=== PATIENT | female | born 1945 | race Two or more races ===

== ENCOUNTER 2017-11-09 10:15 | Emergency (ER) | payer OTHER ==
[~2017-11-09] VITALS: Ht 160 cm; Wt 63.5 kg
[2017-11-09] MEDS ORDERED: ASA81 MG PO (11:42)
[2017-11-09] MEDS ORDERED: INTESTINEX680 M1 PO (16:49)
[2017-11-09] MEDS ORDERED: LEVSIN/SL0.125 MG PO (16:49)
[2017-11-09] MEDS ORDERED: ULTRACET PO (16:52)
== END 2017-11-09 17:51 | disposition home or self-care (01) ==
LOC: ER 10:15
DX: B34.9 Viral infection, unspecified (principal); R10.32 Left lower quadrant pain

== ENCOUNTER 2018-01-06 08:11 | Emergency (ER) | payer OTHER ==
[~2018-01-06] VITALS: Ht 157.5 cm; Wt 63.5 kg
[~2018-01-06 08:11] MED LIST: ASA81 MG PO; INTESTINEX680 M1 PO; LEVSIN/SL0.125 MG PO; ULTRACET PO
== END 2018-01-06 21:59 | disposition home or self-care (01) ==
LOC: ER 08:11
DX: R42 Dizziness and giddiness (principal); R51 Headache

== ENCOUNTER 2019-01-07 10:18 | Emergency (ER) | payer OTHER ==
[~2019-01-07] VITALS: Ht 154.9 cm; Wt 59.0 kg
== END 2019-01-07 13:53 | disposition home or self-care (01) ==
LOC: ER 10:18
DX: B33.8 Other specified viral diseases (principal); B96.0 Mycoplasma pneumoniae [M. pneumoniae] as the cause of diseases classified elsewhere

== ENCOUNTER 2020-04-23 07:22 | Emergency (ER) | payer OTHER ==
[~2020-04-23] VITALS: Ht 160 cm; Wt 54.9 kg
[2020-04-23] MEDS ORDERED: NORFLEX100MG PO (10:40)
[2020-04-23] MEDS ORDERED: MEDROLPACK PO (10:40)
== END 2020-04-23 12:33 | disposition home or self-care (01) ==
LOC: ER 07:22
DX: M54.5 Low back pain (principal); M25.552 Pain in left hip

== ENCOUNTER 2020-06-11 13:14 | Emergency (ER) | payer OTHER ==
[~2020-06-11] VITALS: Ht 160 cm; Wt 56.7 kg
[~2020-06-11 13:14] MED LIST changes: +MEDROLPACK PO; +NORFLEX100MG PO
== END 2020-06-11 16:56 | disposition home or self-care (01) ==
LOC: ER 13:14
DX: M54.2 Cervicalgia (principal)

== ENCOUNTER 2020-11-14 15:17 | Emergency (ER) | payer OTHER ==
[~2020-11-14] VITALS: Ht 162.6 cm; Wt 59.0 kg
== END 2020-11-14 18:25 | disposition home or self-care (01) ==
LOC: ER 15:17
DX: S00.03XA Contusion of scalp, initial encounter (principal); S10.83XA Contusion of other specified part of neck, initial encounter; W01.190A Fall on same level from slipping, tripping and stumbling with subsequent striking against furniture, initial encounter; Y93.89 Activity, other specified; Y92.89 Other specified places as the place of occurrence of the external cause; Y99.8 Other external cause status

== ENCOUNTER 2020-11-22 12:01 | Emergency (ER) | payer OTHER ==
[~2020-11-22] VITALS: Ht 160 cm; Wt 59.0 kg
[2020-11-22] MEDS ORDERED: MULTIPLE VITAM1 EACH PO (12:17)
[2020-11-22] MEDS ORDERED: SKELAGESIC PO (15:52)
[2020-11-22] MEDS ORDERED: ORPHENADRINE C100 MG PO (15:52)
[2020-11-22] MEDS ORDERED: ULTRAM50 MG PO (15:52)
== END 2020-11-22 19:18 ==
LOC: ER 12:01
DX: R51.9 Headache, unspecified (principal); S80.02XS Contusion of left knee, sequela; S70.02XS Contusion of left hip, sequela; S00.83XS Contusion of other part of head, sequela; W18.09XS Striking against other object with subsequent fall, sequela

== ENCOUNTER 2021-04-25 11:13 | Emergency (ER) | payer OTHER ==
[~2021-04-25] VITALS: Ht 139.7 cm; Wt 56.7 kg
[~2021-04-25 11:13] MED LIST changes: +MULTIPLE VITAM1 EACH PO; +ORPHENADRINE C100 MG PO; +SKELAGESIC PO; +ULTRAM50 MG PO
== END 2021-04-25 15:22 | disposition home or self-care (01) ==
LOC: ER 11:13
DX: M25.511 Pain in right shoulder (principal); M54.2 Cervicalgia

== ENCOUNTER 2023-03-23 08:27 | Emergency (ER) | payer OTHER ==
[~2023-03-23] VITALS: Ht 160 cm; Wt 54.0 kg
[2023-03-23] MEDS ORDERED: 0.9 % SODIUM CHLORIDE 1,000 ML IV SCH (08:51)
[2023-03-23 09:40] LABS: HEMATOCRIT 31.3 % (36.0-45.00); HEMOGLOBIN 10.9 g/dL (12.0-15.00); MEAN CELL VOLUME 85.4 fL (80.00-100.00); MEAN CORPUSCULAR HEMOGLOBIN 29.6 pg (27.00-32.0); MEAN CORPUSCULAR HGB CONC 34.6 g/dl (32.0-36.0); PLATELET COUNT 194 K/uL (150-450); RED BLOOD COUNT 3.67 M/uL (4.00-6.00); RED CELL DISTRIBUTION WIDTH 13.7 % (11.5-14.5)
[2023-03-23 10:13] LABS: CALCIUM 8.7 mg/dL (8.5-10.1); CREATININE SERUM 0.64 mg/dL (0.55-1.02); GFR 89.51
[2023-03-23 10:18] LABS: POTASSIUM 2.67 mEq/L (3.5-5.1)
[2023-03-23] MEDS ORDERED: POTASSIUM CHLORIDE IN 0.9%NACL 1,000 ML IV ONE (10:30)
[2023-03-23 12:52] LABS: PH,URINE 6.5 (5.0-8.0); URINE APPEARANCE Clear; URINE BILIRRUBIN Negative (NEGATIVE); URINE BLOOD Trace; URINE COLOR Yellow; URINE GLUCOSE Negative (NEGATIVE); URINE LEUKOCYTE Negative; URINE NITRATE Negative; URINE PROTEIN Negative (NEGATIVE)
[2023-03-23 12:55] LABS: URINE BACTERIA 220.3 uL (0.0-1933); URINE EPITHELIAL CELLS 9.4 uL (0.0-38.8); URINE RBC 9.1 uL (0.0-20.8); URINE WBC 11.5 uL (0.0-23.2)
[2023-03-23 18:15] LABS: CALCIUM 8.7 mg/dL (8.5-10.1); CREATININE SERUM 0.56 mg/dL (0.55-1.02); GFR 104.43; POTASSIUM 3.35 mEq/L (3.5-5.1)
[2023-03-23] MEDS ORDERED: DRAMAMINE LESS25 MG PO (19:29)
== END 2023-03-23 21:03 | disposition home or self-care (01) ==
LOC: ER
PROVIDERS: Emergency Medicine; General Practice
DX: R42 Dizziness and giddiness (principal); Z88.6 Allergy status to analgesic agent
CPT/HCPCS: 36415; 70450; 96365; 96366; 99284; J3480; J7030